=== PATIENT | male | born 1990 | race Caucasian/White ===

== ENCOUNTER → 2018-02-02 14:27 | Outpatient (CLI) | payer OTHER, MEDICAID, SELFPAY ==
[2018-02-02 15:01] LABS: Basophils Percent Auto 0.8 % (0-2); Eosinophils Percent Auto 9.4 % (2-4); Hematocrit 36.6 % (41-53); Hemoglobin 11.9 g/dL (13.5-17.5); Lymphocytes Percent Auto 8.4 % (25-40); Mean Corpuscular HGB Conc 32.5 % (30-36); Mean Corpuscular Hemoglobin 28.6 PG (26-34); Monocytes Percent Auto 15.1 % (3-14); Neutrophils Absolute Auto 3500 /uL (3000-5900); Neutrophils Percent Auto 66.3 % (50-75); Platelet Count 408 X10^3/uL (150-400); Red Blood Cell Count 4.15 X10^6/uL (4.5-5.9); Red Cell Distribution Width 22.3 % (11.6-14.8); White Blood Cell Count 5.3 X10^3/uL (4.5-11.0)
[2018-02-02 15:08] LABS: Add Manual Diff / Slide Review SLIDE REVIEW
[2018-02-02 15:41] LABS: Anisocytosis 2+; Poikilocytosis 1+
== END ==
PROVIDERS: Nurse Practitioner Gerontology; Visit Provider Internal Medicine Hematology & Oncology
DX: C81.90 Hodgkin lymphoma, unspecified, unspecified site (principal)
CPT/HCPCS: 36415; 85025

== ENCOUNTER → 2018-02-09 15:00 | Outpatient (CLI) | payer OTHER, MEDICAID, SELFPAY ==
[2018-02-09 15:21] LABS: Add Manual Diff / Slide Review NO; Basophils Percent Auto 0.9 % (0-2); Eosinophils Percent Auto 6.4 % (2-4); Hematocrit 35.8 % (41-53); Lymphocytes Percent Auto 4.9 % (25-40); Mean Corpuscular HGB Conc 33.5 % (30-36); Mean Corpuscular Hemoglobin 29.8 PG (26-34); Mean Corpuscular Volume 88.9 fL (80-100); Neutrophils Absolute Auto 5400 /uL (3000-5900); Neutrophils Percent Auto 72.8 % (50-75); Platelet Count 282 X10^3/uL (150-400); Red Blood Cell Count 4.03 X10^6/uL (4.5-5.9); Red Cell Distribution Width 22.7 % (11.6-14.8); White Blood Cell Count 7.4 X10^3/uL (4.5-11.0)
[2018-02-09 16:36] LABS: Anisocytosis 2+; Poikilocytosis 1+
== END ==
PROVIDERS: Nurse Practitioner Gerontology
DX: C81.90 Hodgkin lymphoma, unspecified, unspecified site (principal)
CPT/HCPCS: 36415; 85025

== ENCOUNTER 2018-10-17 17:18 | Emergency (ER) | payer OTHER, MEDICAID, SELFPAY ==
[2018-10-17 17:22] VITALS: BP 114/75; PULSE 95; RESP 18; TEMP 36.8; O2SAT 98; BMI 22.6
--- NOTE | 2018-10-17 17:53 | ED_ITS ---
HPI - Ear Problem <Sheron So PA-C - Last Filed: 10/17/18 22:18> General Chief complaint: Ear Stated complaint: LEFT EAR INFECTION Time Seen by Provider: 10/17/18 17:20 Source: patient Mode of arrival: ambulatory Limitations: no limitations History of Present Illness HPI Narrative: This 28-year-old male who recently completed a course of radiation for Hodgkin's lymphoma and is status post stem cell transplant, complains of possible left ear infection. He states that several others have been sick at home with more typical cold and upper respiratory symptoms, which he had last week, mainly with sinus congestion and pressure, nasal congestion and sore throat. He states he has had some cough, no shortness of breath. He has not had a fever. He states that in the last 36 hr, his left ear has become very painful and he has difficulty hearing out of that ear. He has not had drainage from that ear. He has not been taking any medication or decongestant aside from occasional Tylenol Related Data Home Medications Medication Instructions Recorded Confirmed [TURMERIC] 500 mg PO QDAY #0 03/17/17 ascorbic acid (vitamin C) 500 mg PO QDAY #0 03/17/17 ibuprofen [Advil] 400 mg PO Q6HP PRN #0 08/18/17 acyclovir [Zovirax] 200 mg PO BID #0 12/20/17 levofloxacin [Levaquin] 500 mg PO QDAY #0 12/20/17 prochlorperazine maleate 5 mg PO PRN #0 12/20/17 [Compazine] sulfamethoxazole-trimethoprim 1 tab PO BID #0 12/20/17 hydromorphone [Dilaudid] 1 - 2 tab PO Q3HP PRN 10/17/18 silver sulfadiazine [SSD] 1 applic TOPICAL BID 10/17/18 10/17/18 Previous Rx's Medication Instructions Recorded lorazepam 0.5 mg PO Q6HP PRN #40 tab 10/06/17 ondansetron 4 mg SUBLINGUAL Q6HP PRN #40 tab 10/06/17 amoxicillin-pot clavulanate 1 tab PO Q12H #14 tab 10/17/18 Allergies Allergy/AdvReac Type Severity Reaction Status Date / Time vancomycin Allergy Rash Verified 10/17/18 17:28 morphine AdvReac Vomiting Verified 10/17/18 17:29 Review of Systems <Sheron So PA-C - Last Filed: 10/17/18 22:18> Review of Systems ROS Unobtainable: All systems reviewed & are unremarkable except as noted in HPI and below PFSH <Sheron So PA-C - Last Filed: 10/17/18 22:18> Comment: Quit tobacco 2016 Exam <MARGA Govea Last Filed: 10/17/18 22:18> Narrative Exam Narrative: GENERAL APPEARANCE: Patient sitting comfortably, in no distress. HEAD: No sinus TTP. EYES: PERRL, EOMI. EARS: Normal auditory canals, right TM is intact, dull, left is retracted, erythematous, with a slight bulge in the inferior anterior quadrant ORAL CAVITY: Normal oropharynx. THROAT: Clear. PND noted NECK/THYROID: Neck supple, full range of motion, no cervical lymphadenopathy. LUNGS: Clear to auscultation bilaterally, no cough on exam. HEART: RRR without murmur, nl S1, S2, no S3 or S4. Initial Vital Signs Initial Vital Signs: Vital Signs Temperature 98.3 F 10/17/18 17:22 Pulse Rate 95 H 10/17/18 17:22 Respiratory Rate 18 10/17/18 17:22 Blood Pressure 114/75 10/17/18 17:22 Pulse Oximetry 98 10/17/18 17:22 <Saul Traore DO - Last Filed: 10/18/18 00:44> Initial Vital Signs Initial Vital Signs: Vital Signs Temperature 98.3 F 10/17/18 17:22 Pulse Rate 95 H 10/17/18 17:22 Respiratory Rate 18 10/17/18 17:22 Blood Pressure 114/75 10/17/18 17:22 Pulse Oximetry 98 10/17/18 17:22 Course <MARGA Govea Last Filed: 10/17/18 22:18> Vital Signs - 8 hr 10/17/18 17:22 Temperature 98.3 F Pulse Rate 95 H Respiratory Rate 18 Blood Pressure 114/75 Pulse Oximetry 98 <Saul Traore DO - Last Filed: 10/18/18 00:44> Vital Signs - 8 hr 10/17/18 17:22 Temperature 98.3 F Pulse Rate 95 H Respiratory Rate 18 Blood Pressure 114/75 Pulse Oximetry 98 Discharge Plan Departure Patient Disposition: Home Clinical Impression: Otitis media Discharge Date/Time: 10/17/18 18:27 Interventions: ED Discharge Assessment Last Done: 10/17/18 18:26 Instructions: Middle Ear Infection Activity Restrictions/Additional Instructions: Please return if you have acutely worsening symptoms, or new symptoms such as high fever not responding to medicine. Please start an [id number] anti- inflammatory pain relievers such as Motrin (ibuprofen) 800 mg every 8 hr, or Aleve, 2 tablets every 12 hr (these are equivalent to prescription doses). You can add Tylenol as needed. Also try pseudoephedrine (the 1 that you get from the pharmacist) to help with your congestion, sinus and ear pressure. Start the antibiotic right away. You should follow-up with your primary respite care provider , walk-in, or here if you are not responding to antibiotics at the end of the week. Prescriptions: New amoxicillin-pot clavulanate 875-125 mg tablet 1 tab PO Q12H Qty: 14 RF: 0 No Action ascorbic acid (vitamin C) 500 MG tablet 500 mg PO QDAY Qty: 0 RF: 0 [TURMERIC] 500 mg PO QDAY Qty: 0 RF: 0 ibuprofen [Advil] 200 MG tablet 400 mg PO Q6HP PRNQty: 0 RF: 0 lorazepam 0.5 MG tablet 0.5 mg PO Q6HP PRNQty: 40 RF: 0 ondansetron 4 MG tablet,disintegrating 4 mg Sublingual Q6HP PRNQty: 40 RF: 2 prochlorperazine maleate [Compazine] 5 MG tablet 5 mg PO PRN Qty: 0 RF: 0 sulfamethoxazole-trimethoprim 800 MG/160 MG tablet 1 tab PO BID Qty: 0 RF: 0 acyclovir [Zovirax] 200 MG capsule 200 mg PO BID Qty: 0 RF: 0 levofloxacin [Levaquin] 500 MG tablet 500 mg PO QDAY Qty: 0 RF: 0 silver sulfadiazine [SSD] 1 % cream 1 applic Topical BID RF: 0 hydromorphone [Dilaudid] 2 MG tablet 1 - 2 tab PO Q3HP PRN (Reason: pain) RF: 0 Referrals: Denzel Sosa MD [Non-Staff] - <DO Fox Hugo Last Filed: 10/18/18 00:44> Cosign ED Attending Alex Attestation: I was available for consultation during this patient's emergency department encounter
== END 2018-10-17 18:27 | disposition home or self-care (01) ==
PROVIDERS: Emergency Provider Internal Medicine
DX: H66.92 Otitis media, unspecified, left ear (principal)
CPT/HCPCS: 99282

== ENCOUNTER → 2019-07-18 13:25 | Outpatient (CLI) | payer OTHER, MEDICAID, SELFPAY ==
[2019-07-18 14:11] LABS: Add Manual Diff / Slide Review NO; Basophils Absolute Auto 0 /uL (0-100); Basophils Percent Auto 0.6 % (0-2); Eosinophils Absolute Auto 100 /uL (0-450); Hematocrit 38.2 % (41-53); Hemoglobin 13.1 g/dL (13.5-17.5); Lymphocytes Absolute Auto 800 /uL (1100-4500); Lymphocytes Percent Auto 17.7 % (25-40); Mean Corpuscular HGB Conc 34.4 % (30-36); Mean Corpuscular Hemoglobin 34.1 PG (26-34); Mean Corpuscular Volume 99.3 fL (80-100); Monocytes Absolute Auto 400 /uL (0-900); Monocytes Percent Auto 10.2 % (3-14); Neutrophils Absolute Auto 3000 /uL (1500-7000); Neutrophils Percent Auto 68.5 % (50-75); Platelet Count 252 X10^3/uL (150-400); Red Blood Cell Count 3.84 X10^6/uL (4.5-5.9); Red Cell Distribution Width 14.1 % (11.6-14.8); White Blood Cell Count 4.3 X10^3/uL (4.5-11.0)
[2019-07-18 14:30] LABS: Alanine Aminotransferase 21 IU/L (21-72); Albumin 4.3 g/dL (3.5-5.0); Albumin Globulin Ratio 1.7 (1.0-2.8); Alkaline Phosphatase 53 U/L (38-126); Aspartate Aminotransferase 28 IU/L (17-59); Bilirubin Total 0.3 mg/dL (0.2-1.3); Blood Urea Nitrogen 14 mg/dL (9-20); Calcium 9.4 mg/dL (8.4-10.2); Carbon Dioxide 29 mmol/L (22-32); Chloride 101 mmol/L (98-107); Estimated Glomerular Filt Rate > 60.0 mL/min (>60); Globulin 2.6 g/dL (1.7-4.1); Glucose 102 mg/dL (70-100); HEMOLYSIS < 15 (0-50); Potassium 4.3 mmol/L (3.4-5.1); Sodium 138 mmol/L (137-145); Total Protein 6.9 g/dL (6.3-8.2)
== END ==
PROVIDERS: Visit Provider Internal Medicine Hematology & Oncology
DX: C81.90 Hodgkin lymphoma, unspecified, unspecified site (principal)
CPT/HCPCS: 36415; 80053; 85025

== ENCOUNTER → 2019-10-13 14:37 | Outpatient (CLI) | payer OTHER, MEDICAID, SELFPAY ==
[2019-10-13 15:34] LABS: Add Manual Diff / Slide Review NO; Basophils Absolute Auto 0 /uL (0-100); Basophils Percent Auto 1.1 % (0-2); Eosinophils Absolute Auto 200 /uL (0-450); Eosinophils Percent Auto 4.4 % (2-4); Hemoglobin 14.4 g/dL (13.5-17.5); Lymphocytes Absolute Auto 900 /uL (1100-4500); Lymphocytes Percent Auto 22.9 % (25-40); Mean Corpuscular HGB Conc 34.3 % (30-36); Mean Corpuscular Hemoglobin 34.7 PG (26-34); Mean Corpuscular Volume 101.3 fL (80-100); Monocytes Absolute Auto 500 /uL (0-900); Monocytes Percent Auto 11.8 % (3-14); Neutrophils Absolute Auto 2300 /uL (1500-7000); Neutrophils Percent Auto 59.8 % (50-75); Platelet Count 243 X10^3/uL (150-400); Red Blood Cell Count 4.14 X10^6/uL (4.5-5.9); Red Cell Distribution Width 14.7 % (11.6-14.8); White Blood Cell Count 3.8 X10^3/uL (4.5-11.0)
[2019-10-13 15:54] LABS: Alanine Aminotransferase 18 IU/L (<50); Albumin 4.5 g/dL (3.5-5.0); Albumin Globulin Ratio 1.8 (1.0-2.8); Alkaline Phosphatase 54 U/L (38-126); Aspartate Aminotransferase 36 IU/L (17-59); BUN Creatinine Ratio 22.9 (6-22); Bilirubin Total 0.5 mg/dL (0.2-1.3); Blood Urea Nitrogen 16 mg/dL (9-20); Calcium 9.2 mg/dL (8.4-10.2); Carbon Dioxide 31 mmol/L (22-32); Chloride 102 mmol/L (98-107); Estimated Glomerular Filt Rate > 60.0 mL/min (>60); Globulin 2.5 g/dL (1.7-4.1); Glucose 95 mg/dL (70-100); HEMOLYSIS < 15 (0-50); Lactate Dehydrogenase 400 U/L (313-618); Potassium 4.2 mmol/L (3.4-5.1); Sodium 139 mmol/L (137-145)
== END ==
PROVIDERS: Visit Provider Internal Medicine Hematology & Oncology
DX: C81.90 Hodgkin lymphoma, unspecified, unspecified site (principal)
CPT/HCPCS: 36415; 80053; 83615; 85025

== ENCOUNTER → 2019-11-08 14:32 | Outpatient (CLI) | payer SELFPAY ==
[2019-11-08 15:55] LABS: Alanine Aminotransferase 18 IU/L (<50); Albumin 4.6 g/dL (3.5-5.0); Albumin Globulin Ratio 1.6 (1.0-2.8); Alkaline Phosphatase 58 U/L (38-126); Aspartate Aminotransferase 33 IU/L (17-59); BUN Creatinine Ratio 16.7 (6-22); Bilirubin Total 0.5 mg/dL (0.2-1.3); Blood Urea Nitrogen 15 mg/dL (9-20); Calcium 9.2 mg/dL (8.4-10.2); Carbon Dioxide 31 mmol/L (22-32); Chloride 98 mmol/L (98-107); Estimated Glomerular Filt Rate > 60.0 mL/min (>60); Globulin 2.9 g/dL (1.7-4.1); Glucose 95 mg/dL (70-100); HEMOLYSIS < 15 (0-50); Lactate Dehydrogenase 413 U/L (313-618); Potassium 4.5 mmol/L (3.4-5.1); Sodium 137 mmol/L (137-145); Total Protein 7.5 g/dL (6.3-8.2)
[2019-11-08 16:08] LABS: Add Manual Diff / Slide Review NO; Basophils Absolute Auto 0 /uL (0-100); Basophils Percent Auto 0.2 % (0-2); Eosinophils Absolute Auto 100 /uL (0-450); Eosinophils Percent Auto 1.2 % (2-4); Hematocrit 42.7 % (41-53); Hemoglobin 14.9 g/dL (13.5-17.5); Lymphocytes Absolute Auto 700 /uL (1100-4500); Lymphocytes Percent Auto 8.4 % (25-40); Mean Corpuscular Hemoglobin 35.8 PG (26-34); Mean Corpuscular Volume 102.3 fL (80-100); Monocytes Absolute Auto 800 /uL (0-900); Monocytes Percent Auto 8.8 % (3-14); Neutrophils Absolute Auto 7200 /uL (1500-7000); Neutrophils Percent Auto 81.4 % (50-75); Platelet Count 236 X10^3/uL (150-400); Red Blood Cell Count 4.17 X10^6/uL (4.5-5.9); Red Cell Distribution Width 14.3 % (11.6-14.8); White Blood Cell Count 8.9 X10^3/uL (4.5-11.0)
== END ==
PROVIDERS: Referring Provider Internal Medicine Hematology & Oncology; Visit Provider Internal Medicine Hematology & Oncology
DX: C81.90 Hodgkin lymphoma, unspecified, unspecified site (principal)
CPT/HCPCS: 36415; 80053; 83615; 85025

== ENCOUNTER 2021-08-19 16:42 | Emergency (ER) | payer SELFPAY ==
[2021-08-19 17:02] VITALS: BP 123/83; PULSE 90; RESP 16; TEMP 37.6; O2SAT 99; BMI 25.0
--- NOTE | 2021-08-19 17:19 | DI.US.S_ITS ---
PROCEDURE: US SCROTUM INDICATIONS: Testicular swelling TECHNIQUE: Real-time scanning was performed of the scrotum and testicles, with image documentation. Color and pulse Doppler interrogation was performed of both testicles. COMPARISON: None. FINDINGS: Right: Testicle is normal in size at 3.5 x 1.6 x 2.3 cm, and homogenous in echotexture. Epididymis is normal in overall size and morphology. No hydrocele or varicoceles. Overlying scrotal skin is normal in thickness. Left: Testicle is normal in size at 3.2 x 1.9 x 2.1 cm, and homogeneous in echotexture and other than small 1 mm echogenic focus. Epididymis is normal in overall size and morphology. No hydrocele or varicoceles. Overlying scrotal skin is normal in thickness. Doppler: Color and pulse Doppler demonstrate normal and symmetric arterial flow in both testicles. Slightly increased vascularity involving the left epididymis IMPRESSION: Possible mild left epididymitis. Left epididymis is slightly enlarged and hypervascular which may reflect a mild epididymitis. Approved by: Mahesh Bateman M.D. on 08/19/2021 at 18:48
--- NOTE | 2021-08-19 18:16 | ED.MALEGU ---
HPI - Male Genitourinary General Chief complaint: Urogenital-Male Stated complaint: left testicular enlargement, pain in lower abd Time Seen by Provider: 08/19/21 17:18 Source: patient Mode of arrival: Ambulatory Limitations: no limitations History of Present Illness HPI Narrative: This is a 31-year-old male comes emergency department with concern for left testicular enlargement discomfort. He noticed symptoms over last 24 hours. He states he has had some mild to moderate swelling. Just on the left side. To have some pain in the testicle that has radiated a little bit up to his abdomen. Denies any pain or swelling of the right. No color changes. No dysuria, urgency frequency with his urine. No discharge. Patient denies any other back or flank pain. No temperatures greater than 99.7. No nausea or vomiting. No issues with bowel movements. Patient has not had similar symptoms in the past. He does have a history significant for prior non-Hodgkin's lymphoma and required chemotherapy, radiation to his right upper chest as well as immune modulators an experimental treatment. States he has been cleared from his cancer treatment for the past year and was discharged. His treatment was about 3 and half years ago. He denies any other daily medical issues. He takes a daily vitamin. He had multiple biopsies in his right chest and left axilla. He had 2 small surgeries on the inner right butt cheek/groin area for an infection many years ago. He states he is allergic to vancomycin and morphine. Patient defers any pain medications. Related Data Home Medications Medication Instructions Recorded Confirmed [TURMERIC] 500 mg PO QDAY #0 03/17/17 10/26/18 ascorbic acid (vitamin C) 500 mg 500 mg PO QDAY #0 03/17/17 10/26/18 tablet ibuprofen 200 mg tablet (Advil) 400 mg PO Q6HP PRN #0 08/18/17 10/26/18 acyclovir 200 mg capsule (Zovirax) 200 mg PO BID #0 12/20/17 10/26/18 levofloxacin 500 mg tablet 500 mg PO QDAY #0 12/20/17 10/26/18 (Levaquin) prochlorperazine maleate 5 mg 5 mg PO PRN #0 12/20/17 10/26/18 tablet (Compazine) sulfamethoxazole 800 1 tab PO BID #0 12/20/17 10/26/18 mg-trimethoprim 160 mg tablet hydromorphone 2 mg tablet 1 - 2 tab PO Q3HP PRN 10/17/18 10/26/18 (Dilaudid) silver sulfadiazine 1 % topical 1 applic TOPICAL BID 10/17/18 10/26/18 cream Previous Rx's Medication Instructions Recorded lorazepam 0.5 mg tablet 0.5 mg PO Q6HP PRN #40 tab 10/06/17 ondansetron 4 mg disintegrating 4 mg SUBLINGUAL Q6HP PRN #40 tab 10/06/17 tablet mupirocin 2 % topical ointment 1 applic TOP BID #30 gram 10/26/18 doxycycline hyclate 100 mg tablet 100 mg PO BID 14 Days #28 tab 08/19/21 Allergies Allergy/AdvReac Type Severity Reaction Status Date / Time vancomycin Allergy Rash Verified 10/26/18 13:09 morphine AdvReac Vomiting Verified 10/26/18 13:09 Review of Systems Review of Systems ROS Unobtainable: All systems reviewed & are unremarkable except as noted in HPI and below Patient History Medical History History of nephrolithiasis History of shingles Hodgkin's lymphoma Perirectal abscess Surgical History History of stem cell transplant Family History (Updated 10/17/18 @ 18:25 by Sheron So PA-C) Other Family history non-contributory Social History Smoking Status: Former smoker Smoking Status: Former smoker alcohol intake frequency: a few times a week Substance Use Type: does not use Exam Narrative Exam Narrative: GENERAL: Alert and oriented x three, male in mild distress. HEENT: Head normocephalic, atraumatic, EOMI, pupils reactive, face symmetric, moist mucous membranes NECK: Supple, full range of motion CARDIOVASCULAR: Regular rate and rhythm without murmurs, rubs or gallops. RESPIRATORY: Breath sounds equal bilaterally, no wheezes rales or rhonchi. ABDOMEN: Soft, nontender. Normoactive bowel sounds all 4 quadrants. No guarding or rebound, rigidity, no mass : No CVA tenderness. Chaperoned by nurse CAILIN Padron. Male: normal external examination except for slight swelling of the left testicle which also sits slightly lower than the right. No penile discharge or lesions, right testicle nontender to palpation, left testicle very mildly tender to palptation, cremasteric reflex intact, no inguinal hernias noted. No warmth, erythema or skin changes or edema noted. EXTREMITIES: Normal range of motion, no clubbing or edema. Neurovascularly intact NEUROLOGICAL: Cranial nerves II through XII grossly intact. Moving all extremities SKIN: Warm, dry, no petechiae, no rashes or lesions. Initial Vital Signs Initial Vital Signs: Vital Signs Temperature 99.7 F H 08/19/21 17:02 Pulse Rate 90 08/19/21 17:02 Respiratory Rate 16 08/19/21 17:02 Blood Pressure 123/83 08/19/21 17:02 Pulse Oximetry 99 08/19/21 17:02 Course Orders Ordered: Discontinued Medications Ceftriaxone Sodium (Ceftriaxone 1,000 Mg Vial) 250 mg IM NOW ONE Stop: 08/19/21 19:54 Last Admin: 08/19/21 20:19 Dose: 250 mg Documented by: GUILLERMINA Doxycycline Hyclate (Doxycycline Hyclate 100 Mg Tablet) 100 mg PO NOW ONE Stop: 08/19/21 19:54 Last Admin: 08/19/21 20:21 Dose: 100 mg Documented by: GUILLERMINA Vital Signs Vital signs: Vital Signs - 8 hr 08/19/21 17:02 Temperature 99.7 F H Pulse Rate 90 Respiratory Rate 16 Blood Pressure 123/83 Pulse Oximetry 99 MDM - Male Genitourinary Lab Data Labs: Urine Dip Bedside Urine Glucose Negative Bedside Urine Bilirubin - Negative Bedside Urine Ketone - Negative Urine Specific [place] 1.010 Bedside Urine Occult Blood - Negative Bedside Urine pH 6.0 Bedside Urine Protein - Negative Bedside Urine Urobilinogen - Negative Bedside Urine Nitrite - Negative Bedside Urine Leukocytes - Negative Esterase Imaging Data scrotum US: Radiologist's Impression: Launch?[address] [address] Ultrasound Report Signed Patient: Michael Kay MR#: [id number] : 1990 Acct:[id number] Age/Sex: 31 / M Date of Service: 08/19/21 Loc: ED Accession Number: [id number] ?? Procedure: US scrotum Ordering Provider: Saul Traore D.O. PROCEDURE:? US SCROTUM ? INDICATIONS:? Testicular swelling ? TECHNIQUE:? Real-time scanning was performed of the scrotum and testicles, with image documentation.? Color and pulse Doppler interrogation was performed of both testicles.? ? COMPARISON:? None. ? FINDINGS:? ? Right:? Testicle is normal in size at 3.5 x 1.6 x 2.3 cm, and homogenous in echotexture.? Epididymis is normal in overall size and morphology.? No hydrocele or varicoceles.? Overlying scrotal skin is normal in thickness.? ? Left:? Testicle is normal in size at 3.2 x 1.9 x 2.1 cm, and homogeneous in echotexture and other than small 1 mm echogenic focus.? Epididymis is normal in overall size and morphology.? No hydrocele or varicoceles.? Overlying scrotal skin is normal in thickness. ? ? Doppler:? Color and pulse Doppler demonstrate normal and symmetric arterial flow in both testicles.? Slightly increased vascularity involving the left epididymis ? IMPRESSION:? ? Possible mild left epididymitis.? Left epididymis is slightly enlarged and hypervascular which may reflect a mild epididymitis. ? ? ? Approved by: Mahesh Bateman M.D. on 08/19/2021 at 18:48? [facility] Narrative Medical decision making narrative: This is a 31-year-old male with left testicular discomfort. Urine is negative for obvious infection. Ultrasound shows appearance consistent with epididymitis. Patient covered with Rocephin and doxycycline. Prescription given return precautions discussed. Discharge Plan Departure Patient Disposition: Home Clinical Impression: Pain in left testicle, Epididymitis, left Instructions: Epididymitis Activity Restrictions/Additional Instructions: Your imaging today shows epididymitis or an infection or inflammation of the epididymal portion of your testicle. This is typically treated with antibiotics. [facility]cription was [facility]. You may take ibuprofen up to 800 mg every 8 hours and/or Tylenol up to a 1000 mg every 8 hours as needed for pain. Please return for worsening pain, rapidly worsening swelling, redness, fevers, persistent vomiting, new or worsening abdominal back or flank pain or other new or concerning symptoms. Prescriptions: New doxycycline hyclate 100 mg tablet 100 mg PO BID 14 Days Qty: 28 0RF No Action mupirocin 2 % ointment 1 applic TOP BID Qty: 30 0RF ascorbic acid (vitamin C) 500 MG tablet 500 mg PO QDAY Qty: 0 0RF [TURMERIC] 500 mg PO QDAY Qty: 0 0RF ibuprofen [Advil] 200 MG tablet 400 mg PO Q6HP PRNQty: 0 0RF lorazepam 0.5 MG tablet 0.5 mg PO Q6HP PRNQty: 40 0RF ondansetron 4 MG tablet,disintegrating 4 mg Sublingual Q6HP PRNQty: 40 2RF prochlorperazine maleate [Compazine] 5 MG tablet 5 mg PO PRN Qty: 0 0RF sulfamethoxazole-trimethoprim 800 MG/160 MG tablet 1 tab PO BID Qty: 0 0RF acyclovir [Zovirax] 200 MG capsule 200 mg PO BID Qty: 0 0RF levofloxacin [Levaquin] 500 MG tablet 500 mg PO QDAY Qty: 0 0RF silver sulfadiazine [SSD] 1 % cream 1 applic Topical BID 0RF Label Comments: apply to affected area twice a day hydromorphone [Dilaudid] 2 MG tablet 1 - 2 tab PO Q3HP PRN (Reason: pain) 0RF
[2021-08-19] MEDS: LIDOCAINE 1% (PF) 2 ML (20:19)
[2021-08-19] MEDS: cefTRIAXone 1,000 MG VIAL 250 MG IM (20:19)
[2021-08-19] MEDS: DOXYCYCLINE HYCLATE 100 MG TABLET PO (20:21)
[2021-08-19 20:28] VITALS: BP 120/85; PULSE 88; RESP 16; O2SAT 99
== END 2021-08-19 20:29 | disposition home or self-care (01) ==
PROVIDERS: Emergency Provider Emergency Medicine
DX: N45.1 Epididymitis (principal); R10.30 Lower abdominal pain, unspecified
CPT/HCPCS: 76870; 81003; 96372; 99283; J0696

== ENCOUNTER 2021-09-04 16:10 | Emergency (ER) | payer SELFPAY ==
[2021-09-04 16:12] VITALS: BP 131/78; PULSE 109; RESP 16; TEMP 37; O2SAT 98; BMI 24.3
--- NOTE | 2021-09-04 19:35 | PC.NURSE ---
Pt reports was seen recently for similar symptoms. was started on antibiotics. Reports pain never decrease, but swelling in left testicle decreased but states starting to return. pain in now radiating up left groin and lower back is now painful.
--- NOTE | 2021-09-04 19:55 | ED.MALEGU ---
HPI - Male Genitourinary General Chief complaint: Urogenital-Male Stated complaint: testicular pain & swelling Time Seen by Provider: 09/04/21 19:55 Source: patient Mode of arrival: Ambulatory Limitations: no limitations History of Present Illness HPI Narrative: 31-year-old male former smoker with history of lymphoma (last treated about 1 year ago) presents for the 2nd time with a chief complaint of left testicular pain and swelling. He was most recently here about 2 weeks ago and had negative urine and ultrasound suggesting the possibility of early epididymitis. Patient was given antibiotics and states that his symptoms had largely resolved but never completely. Additionally, he endorses some generalize left-sided abdominal pain and cramping with radiation to his back. He has had kidney stones and states this feels different. He denies any fever or chills. He denies any obvious provocation or palliation. He has no nausea, vomiting, diarrhea or change in appetite. He denies any weight loss. Related Data Home Medications Medication Instructions Recorded Confirmed [TURMERIC] 500 mg PO QDAY #0 03/17/17 10/26/18 ascorbic acid (vitamin C) 500 mg 500 mg PO QDAY #0 03/17/17 10/26/18 tablet ibuprofen 200 mg tablet (Advil) 400 mg PO Q6HP PRN #0 08/18/17 10/26/18 acyclovir 200 mg capsule (Zovirax) 200 mg PO BID #0 12/20/17 10/26/18 levofloxacin 500 mg tablet 500 mg PO QDAY #0 12/20/17 10/26/18 (Levaquin) prochlorperazine maleate 5 mg 5 mg PO PRN #0 12/20/17 10/26/18 tablet (Compazine) sulfamethoxazole 800 1 tab PO BID #0 12/20/17 10/26/18 mg-trimethoprim 160 mg tablet hydromorphone 2 mg tablet 1 - 2 tab PO Q3HP PRN 10/17/18 10/26/18 (Dilaudid) silver sulfadiazine 1 % topical 1 applic TOPICAL BID 10/17/18 10/26/18 cream Previous Rx's Medication Instructions Recorded lorazepam 0.5 mg tablet 0.5 mg PO Q6HP PRN #40 tab 10/06/17 ondansetron 4 mg disintegrating 4 mg SUBLINGUAL Q6HP PRN #40 tab 10/06/17 tablet mupirocin 2 % topical ointment 1 applic TOP BID #30 gram 10/26/18 hydrocodone 5 mg-acetaminophen 325 1 tab PO Q4-6H PRN #10 tab 09/04/21 mg tablet ondansetron 4 mg disintegrating 4 mg PO TID-QID PRN #10 tab 09/04/21 tablet Allergies Allergy/AdvReac Type Severity Reaction Status Date / Time vancomycin Allergy Rash Verified 10/26/18 13:09 morphine AdvReac Vomiting Verified 10/26/18 13:09 Review of Systems Review of Systems Narrative: GENERAL: Denies chills, fatigue, malaise, fever, sweats. HEENT: Denies sinus pain, ear pain, sore throat, difficulty swallowing, dizziness. RESPIRATORY: Denies dyspnea, cough, wheezing, hemoptysis, sputum. CARDIOVASCULAR: Denies chest pain, palpitations, orthopnea, edema, GASTROINTESTINAL: See HPI : See HPI MUSCULOSKELETAL: denies weakness, joint pain, or bony pain SKIN: Denies rash, skin lesions, or other NEUROLOGIC: Denies weakness, headache, numbness, change in speech, confusion, seizures, incoordination. PSYCHIATRIC: No concerning psychosocial issues. 12 point review of systems is negative except for those stated above Patient History Medical History History of nephrolithiasis History of shingles Hodgkin's lymphoma Perirectal abscess Surgical History History of stem cell transplant Family History Other Family history non-contributory Social History Smoking Status: Former smoker Smoking Status: Former smoker alcohol intake frequency: 3 or more drinks per day Substance Use Type: marijuana Exam Narrative Exam Narrative: GENERAL: [31 year old patient appears stated age. Well-developed patient, in mild distress. HEAD: Atraumatic. Normocephalic. EYES: Pupils equal round and reactive. Extraocular motions intact. No scleral icterus. No injection or drainage. ENT: Nose without bleeding, purulent drainage. Throat without erythema, tonsillar hypertrophy or exudate. Airway patent. NECK: Trachea midline. Non tender CARDIOVASCULAR: Regular rate and rhythm without murmurs, gallops, or rubs. RESPIRATORY: Clear to auscultation. Breath sounds equal bilaterally. No wheezes, rales, or rhonchi. GASTROINTESTINAL: Abdomen soft, non-tender, nondistended. : Examined while standing, no obvious testicular swelling or discoloration, no classic findings consistent with hernia EXTREMITIES: No edema or joint tenderness. BACK: Nontender without deformity or crepitance. No flank tenderness. NEURO: AOx3. SKIN: No rash or erythema of visible areas Initial Vital Signs Initial Vital Signs: Vital Signs Temperature 98.6 F 09/04/21 16:12 Pulse Rate 109 H 09/04/21 16:12 Respiratory Rate 16 09/04/21 16:12 Blood Pressure 131/78 09/04/21 16:12 Pulse Oximetry 98 09/04/21 16:12 Course Orders Ordered: ED Orders 09/04/21 21:38 CT abdomen pelvis w con Stat 09/04/21 22:01 CBC Auto Diff [Complete Blood Count AUTO DIFF] Stat CMP [Comprehensive Metabolic Panel] Stat Discontinued Medications Hydrocodone Bitart/Acetaminophen (Hydrocodone/Acet 5/325 Prepack) 1 bottle MISC SEEINSTR ONE Stop: 09/04/21 22:51 Last Admin: 09/04/21 23:08 Dose: 1 bottle Documented by: BESS Ondansetron HCl (Ondansetron 4 Mg Odt Prepack) 1 bottle MISC SEEINSTR ONE Stop: 09/04/21 22:51 Last Admin: 09/04/21 23:08 Dose: 1 bottle Documented by: BESS Consultations Consultation #1: Discussed CT findings with on-call Oncology for [facility]. He agrees that there is no indication for any specific treatment currently, or need for transfer or emergent procedure, however close follow-up is strongly encouraged. He is relating information to the patient's primary oncologist (Dr. Raymond Sosa) and states he office will contact the patient Vital Signs Vital signs: Vital Signs - 8 hr 09/04/21 22:33 Pulse Rate 90 Blood Pressure 121/78 Pulse Oximetry 99 MDM - Male Genitourinary Lab Data Result diagrams: 09/04/21 22:01 09/04/21 22:01 Labs: Lab Results 09/04/21 09/04/21 Range/Units 22:01 22:01 WBC 10.3 (4.5-11.0) X10^3/uL RBC 4.05 L (4.5-5.9) X10^6/uL Hgb 12.7 L (13.5-17.5) g/dL Hct 36.7 L (41-53) % MCV 90.8 (80-100) fL MCH 31.3 (26-34) PG MCHC 34.5 (30-36) % RDW 13.5 (11.6-14.8) % Plt Count 363 (150-400) X10^3/uL Neut % (Auto) 77.5 H (50-75) % Lymph % (Auto) 10.9 L (25-40) % Power % (Auto) 9.5 (3-14) % Eos % (Auto) 1.6 L (2-4) % Baso % (Auto) 0.5 (0-2) % Neut # (Auto) 8000 H (5995-4265) /uL Lymph # (Auto) 1100 (9595-0739) /uL Power # (Auto) 1000 H (0-900) /uL Eos # (Auto) 200 (0-450) /uL Baso # (Auto) 100 (0-100) /uL Sodium 139 (137-145) mmol/L Potassium 4.1 (3.4-5.1) mmol/L Chloride 100 (98-107) mmol/L Carbon Dioxide 32 (22-32) mmol/L BUN 12 (9-20) mg/dL Creatinine 0.80 (0.66-1.25) mg/dL Estimated GFR > 60.0 (>60) mL/min BUN/Creatinine Ratio 15.0 (6-22) Glucose 103 H (70-100) mg/dL Calcium 9.7 (8.4-10.2) mg/dL Total Bilirubin 0.5 (0.2-1.3) mg/dL AST 30 (17-59) IU/L ALT 22 (<50) IU/L Alkaline Phosphatase 101 (38-126) U/L Total Protein 8.4 H (6.3-8.2) g/dL Albumin 4.4 (3.5-5.0) g/dL Globulin 4.0 (1.7-4.1) g/dL Albumin/Globulin Ratio 1.1 (1.0-2.8) Urine Dip Bedside Urine Glucose Negative Bedside Urine Bilirubin - Negative Bedside Urine Ketone - Negative Urine Specific [place] 1.010 Bedside Urine Occult Blood - Negative Bedside Urine pH 6.0 Bedside Urine Protein - Negative Bedside Urine Urobilinogen +/- 1mg Bedside Urine Nitrite - Negative Bedside Urine Leukocytes - Negative Esterase Imaging Data Abdominal x-ray: Radiologist's Impression: [address] [address] XRay Report Signed Patient: Michael Kay MR#: [id number] : 1990 Acct:[id number] Age/Sex: 31 / M Date of Service: 09/04/21 Loc: ED Accession Number: [id number] ?? Procedure: XR acute abdomen series Ordering Provider: Jeanmarie Calderon D.O. PROCEDURE:? XR ACUTE ABDOMEN SERIES ? INDICATIONS:? lower abdominal pain, radiation to back ? TECHNIQUE:? One view chest and two views of the abdomen were acquired.? ? COMPARISON:? None. ? FINDINGS:? ? Surgical changes and devices:? None.? ? Chest:? Lungs are clear.? Heart size is normal.? No pleural effusions.? No pneumoperitoneum.? ? Abdomen:? Bowel gas pattern is normal.? No suspicious calcifications.? Visualized solid organ contours appear normal.? ? Bones:? No suspicious bony lesions.? ? IMPRESSION:? 1. Nonspecific, nonobstructive bowel gas pattern. 2. No acute chest process.? ? ? Dictated by: Alix Ricks M.D. on 09/04/2021 at 21:18 ? ? Approved by: Alix Ricks M.D. on 09/04/2021 at 21:19 ? CT scan - abdomen/pelvis: Radiologist's Impression: Michael Kay??31??M??1990 ? Allergy/Adv: vancomycin, morphine Close Abdomen/Pelvis CT (Signed) Gosia Mclaughlin - 09/04/21 Chest/Abdomen X-ray (Signed) Alix Ricks - 09/04/21 Scrotum Ultrasound (Signed) Alix Ricks - 09/04/21 Scrotum Ultrasound (Signed) Mahesh Bateman - 08/19/21 Radiology - Historical 12/20/17 Radiology - Historical 12/20/17 Radiology - Historical 12/20/17 Launch?[address] [address] [address] Scan Report Signed Patient: Michael Kay MR#: [id number] : 1990 Acct:[id number] Age/Sex: 31 / M Date of Service: 09/04/21 Loc: ED Accession Number: [id number] ?? Procedure: CT abdomen pelvis w con Ordering Provider: Jeanmarie Calderon D.O. PROCEDURE:? CT ABDOMEN PELVIS W CON ? INDICATIONS:? severe lower abdominal pain, radiation to back, testicle pain ? TECHNIQUE:? After the administration of intravenous contrast, axial sections acquired from the lung bases to the pubic symphysis.? Coronal and sagittal reformats were performed.? For radiation dose reduction, the following was used:? automated exposure control, adjustment of mA and/or kV according to patient size.? ? COMPARISON:? [facility], CT, CT [place], 09/12/2018, 13:33. ? FINDINGS:? Image quality:? Excellent.? ? Lung bases:? Unremarkable. Heart:? No significant findings. ? ABDOMEN: Liver:? Unremarkable.? ? Gallbladder:? Unremarkable.? ? Biliary ducts:? Unremarkable.? ? Pancreas:? Unremarkable.? ? Spleen:? Unremarkable.? ? Adrenal Glands:? Unremarkable.? ? Kidneys and Ureters:? Unremarkable.? ? ? Stomach and Bowel:? Stomach, small bowel loops, and colon are unremarkable.? Peritoneum:? No abnormal intraperitoneal fluid.? No free air.? ? Ventral Wall: ? No hernias.? Abdominal Nodes:? There is new confluency retroperitoneal adenopathy, with a large consequent retroperitoneal mass encasing the infrarenal abdominal aorta and partially encasing the left aspect of the IVC, measuring roughly 43 mm anteroposterior by a 4 mm transverse.? Multiple smaller gastrohepatic ligament lymph nodes and left para-aortic lymph nodes are present. Vessels:? Aorta and inferior vena cava are normal in size.? ? PELVIS: Pelvic Organs:? Unremarkable.? ? Bladder:? Unremarkable.? ? Pelvic Nodes: No enlarged lymph nodes.? Miscellaneous: No hernias are seen. ? ? ? Bones:? Unremarkable.? IMPRESSION:? 1. New bulky retroperitoneal adenopathy, consistent with lymphoma recurrence. 2. No acute process. ? ? ? Dictated by: Gosia Mclaughlin M.D. on 09/04/2021 at 22:28 ? ? Approved by: Gosia Mclaughlin M.D. on 09/04/2021 at 22:31 ? MDM Narrative Medical decision making narrative: Patient with ongoing left testicular pain with a very reassuring physical exam. Labs are unremarkable but imaging would suggest a recurrence of his lymphoma. It is likely that the pain in his scrotum is referred. The extent of the bulky retroperitoneal lymphadenopathy is discussed with Oncology, though it does seem to wrap around his IVC there is no chest pain, shortness of breath, neuro symptoms, syncope or other elements of history or physical exam to suggest that emergent transfer is needed. Extensive return precautions discussed and questions have been answered to his apparent satisfaction Discharge Plan Departure Patient Disposition: Home Clinical Impression: Lymphoma Instructions: DI for Hodgkin Lymphoma Activity Restrictions/Additional Instructions: *You have been diagnosed with [lower abdominal pain, likely due to recurrence of lymphoma as was suggested by the CT scan obtained tonight. *What to do: *Please continue to take your regular medications as directed. [x ] New medication prescriptions sent to your pharmacy: [ ] [ ] New medication written as a paper prescription [ ] No new medications given *Please follow up with Dr. Sosa at the [facility] as soon as possible, call for an appointment tomorrow morning and let them know you were seen in the Emergency Department and that we ask that you be seen in follow up. We will electronically transmit a record of today's note if your PCP is in our system *If you do not have a primary care provider please contact the [facility] Resource line at [phone]. They will ask some questions about your medical history and help get you set up with a doctor in the community. *Return to Emergency Department if you should have any new, worsening or concerning symptoms, such as [fever greater than 101 F, shaking chills, worsening pain, persistent vomiting or other bothersome symptoms] Prescriptions: New hydrocodone-acetaminophen 5-325 mg tablet 1 tab PO Q4-6H PRN (Reason: pain) Qty: 10 0RF ondansetron 4 mg tablet,disintegrating 4 mg PO TID-QID PRN (Reason: nausea and vomiting) Qty: 10 0RF No Action mupirocin 2 % ointment 1 applic TOP BID Qty: 30 0RF ascorbic acid (vitamin C) 500 MG tablet 500 mg PO QDAY Qty: 0 0RF [TURMERIC] 500 mg PO QDAY Qty: 0 0RF ibuprofen [Advil] 200 MG tablet 400 mg PO Q6HP PRNQty: 0 0RF lorazepam 0.5 MG tablet 0.5 mg PO Q6HP PRNQty: 40 0RF ondansetron 4 MG tablet,disintegrating 4 mg Sublingual Q6HP PRNQty: 40 2RF prochlorperazine maleate [Compazine] 5 MG tablet 5 mg PO PRN Qty: 0 0RF sulfamethoxazole-trimethoprim 800 MG/160 MG tablet 1 tab PO BID Qty: 0 0RF acyclovir [Zovirax] 200 MG capsule 200 mg PO BID Qty: 0 0RF levofloxacin [Levaquin] 500 MG tablet 500 mg PO QDAY Qty: 0 0RF silver sulfadiazine [SSD] 1 % cream 1 applic Topical BID 0RF Label Comments: apply to affected area twice a day hydromorphone [Dilaudid] 2 MG tablet 1 - 2 tab PO Q3HP PRN (Reason: pain) 0RF
--- NOTE | 2021-09-04 20:19 | DI.US.S_ITS ---
PROCEDURE: US SCROTUM INDICATIONS: LEFT TESTICULAR PAIN TECHNIQUE: Real-time scanning was performed of the scrotum and testicles, with image documentation. Color and pulse Doppler interrogation was performed of both testicles. COMPARISON: [facility], , US SCROTUM, 08/19/2021, 17:43. FINDINGS: Right: Testicle is normal in size at 3.6 x 1.8 x 3.0 cm, and homogenous in echotexture. Epididymis is normal in overall size and morphology. No hydrocele or varicoceles. Overlying scrotal skin is normal in thickness. Left: Testicle is normal in size at 3.4 x 2.2 x 2.4 cm, and homogeneous in echotexture. Epididymis is normal in overall size and morphology. Small left hydrocele. No varicoceles. Overlying scrotal skin is normal in thickness. Doppler: Color and pulse Doppler demonstrate normal and symmetric arterial flow in both testicles. IMPRESSION: 1. Normal left testicle in morphology and vascularity. 2. Small left hydrocele, similar compared to recent prior. 3. No evidence of epididymitis. Dictated by: Alix Ricks M.D. on 09/04/2021 at 21:50 Approved by: Alix Ricks M.D. on 09/04/2021 at 21:53
--- NOTE | 2021-09-04 20:32 | DI.RAD.S_ITS ---
PROCEDURE: XR ACUTE ABDOMEN SERIES INDICATIONS: lower abdominal pain, radiation to back TECHNIQUE: One view chest and two views of the abdomen were acquired. COMPARISON: None. FINDINGS: Surgical changes and devices: None. Chest: Lungs are clear. Heart size is normal. No pleural effusions. No pneumoperitoneum. Abdomen: Bowel gas pattern is normal. No suspicious calcifications. Visualized solid organ contours appear normal. Bones: No suspicious bony lesions. IMPRESSION: 1. Nonspecific, nonobstructive bowel gas pattern. 2. No acute chest process. Dictated by: Alix Ricks M.D. on 09/04/2021 at 21:18 Approved by: Alix Ricks M.D. on 09/04/2021 at 21:19
--- NOTE | 2021-09-04 21:38 | DI.CT.S_ITS ---
PROCEDURE: CT ABDOMEN PELVIS W CON INDICATIONS: severe lower abdominal pain, radiation to back, testicle pain TECHNIQUE: After the administration of intravenous contrast, axial sections acquired from the lung bases to the pubic symphysis. Coronal and sagittal reformats were performed. For radiation dose reduction, the following was used: automated exposure control, adjustment of mA and/or kV according to patient size. COMPARISON: M[facility]ed [facility], CT, CT [place], 09/12/2018, 13:33. FINDINGS: Image quality: Excellent. Lung bases: Unremarkable. Heart: No significant findings. ABDOMEN: Liver: Unremarkable. Gallbladder: Unremarkable. Biliary ducts: Unremarkable. Pancreas: Unremarkable. Spleen: Unremarkable. Adrenal Glands: Unremarkable. Kidneys and Ureters: Unremarkable. Stomach and Bowel: Stomach, small bowel loops, and colon are unremarkable. Peritoneum: No abnormal intraperitoneal fluid. No free air. Ventral Wall: No hernias. Abdominal Nodes: There is new confluency retroperitoneal adenopathy, with a large consequent retroperitoneal mass encasing the infrarenal abdominal aorta and partially encasing the left aspect of the IVC, measuring roughly 43 mm anteroposterior by a 4 mm transverse. Multiple smaller gastrohepatic ligament lymph nodes and left para-aortic lymph nodes are present. Vessels: Aorta and inferior vena cava are normal in size. PELVIS: Pelvic Organs: Unremarkable. Bladder: Unremarkable. Pelvic Nodes: No enlarged lymph nodes. Miscellaneous: No hernias are seen. Bones: Unremarkable. IMPRESSION: 1. New bulky retroperitoneal adenopathy, consistent with lymphoma recurrence. 2. No acute process. Dictated by: Gosia Mclaughlin M.D. on 09/04/2021 at 22:28 Approved by: Gosia Mclaughlin M.D. on 09/04/2021 at 22:31
[2021-09-04 22:05] LABS: Add Manual Diff / Slide Review NO; Basophils Absolute Auto 100 /uL (0-100); Basophils Percent Auto 0.5 % (0-2); Eosinophils Absolute Auto 200 /uL (0-450); Eosinophils Percent Auto 1.6 % (2-4); Hematocrit 36.7 % (41-53); Hemoglobin 12.7 g/dL (13.5-17.5); Lymphocytes Absolute Auto 1100 /uL (1100-4500); Lymphocytes Percent Auto 10.9 % (25-40); Mean Corpuscular HGB Conc 34.5 % (30-36); Mean Corpuscular Hemoglobin 31.3 PG (26-34); Mean Corpuscular Volume 90.8 fL (80-100); Monocytes Absolute Auto 1000 /uL (0-900); Monocytes Percent Auto 9.5 % (3-14); Neutrophils Absolute Auto 8000 /uL (1500-7000); Neutrophils Percent Auto 77.5 % (50-75); Platelet Count 363 X10^3/uL (150-400); Red Blood Cell Count 4.05 X10^6/uL (4.5-5.9); Red Cell Distribution Width 13.5 % (11.6-14.8); White Blood Cell Count 10.3 X10^3/uL (4.5-11.0)
[2021-09-04 22:14] LABS: Alanine Aminotransferase 22 IU/L (<50); Albumin 4.4 g/dL (3.5-5.0); Albumin Globulin Ratio 1.1 (1.0-2.8); Alkaline Phosphatase 101 U/L (38-126); Aspartate Aminotransferase 30 IU/L (17-59); Bilirubin Total 0.5 mg/dL (0.2-1.3); Blood Urea Nitrogen 12 mg/dL (9-20); Calcium 9.7 mg/dL (8.4-10.2); Carbon Dioxide 32 mmol/L (22-32); Chloride 100 mmol/L (98-107); Estimated Glomerular Filt Rate > 60.0 mL/min (>60); Glucose 103 mg/dL (70-100); HEMOLYSIS < 15 (0-50); Potassium 4.1 mmol/L (3.4-5.1); Sodium 139 mmol/L (137-145); Total Protein 8.4 g/dL (6.3-8.2)
[2021-09-04 22:33] VITALS: BP 121/78; PULSE 90; O2SAT 99
[2021-09-04] MEDS: ONDANSETRON 4 MG ODT PREPACK 1 BOTTLE MISC (23:08)
[2021-09-04] MEDS: HYDROCODONE/ACET 5/325 PREPACK 1 BOTTLE MISC (23:08)
== END 2021-09-04 23:16 | disposition home or self-care (01) ==
PROVIDERS: Emergency Provider Emergency Medicine
DX: C81.90 Hodgkin lymphoma, unspecified, unspecified site (principal); N50.812 Left testicular pain
CPT/HCPCS: 36415; 51798; 74022; 74177; 76870; 80053; 81003; 85025; 99284; Q9967

== ENCOUNTER 2024-09-05 10:31 | Emergency (ER) | payer SELFPAY ==
[2024-09-05] VITALS (10 sets, daily range): BP systolic 110–136; BP diastolic 70–81; PULSE 65–96; RESP 15; TEMP 36.4; O2SAT 99–100; BMI 24.3
[2024-09-05 11:03] LABS: Add Manual Diff / Slide Review NO; Basophils Absolute Auto 0 /uL (0-100); Basophils Percent Auto 0.5 % (0-2); Eosinophils Absolute Auto 200 /uL (0-450); Eosinophils Percent Auto 3.5 % (2-4); Hematocrit 42.2 % (41-53); Hemoglobin 14.3 g/dL (13.5-17.5); Lymphocytes Absolute Auto 1100 /uL (1100-4500); Lymphocytes Percent Auto 17.6 % (25-40); Mean Corpuscular HGB Conc 33.9 % (30-36); Mean Corpuscular Hemoglobin 33.3 PG (26-34); Mean Corpuscular Volume 98.3 fL (80-100); Monocytes Absolute Auto 800 /uL (0-900); Neutrophils Absolute Auto 4100 /uL (1500-7000); Neutrophils Percent Auto 65.4 % (50-75); Platelet Count 251 X10^3/uL (150-400); Red Blood Cell Count 4.29 X10^6/uL (4.5-5.9); Red Cell Distribution Width 12.9 % (11.6-14.8); White Blood Cell Count 6.3 X10^3/uL (4.5-11.0)
[2024-09-05 11:09] LABS: Alanine Aminotransferase 25 IU/L (<50); Albumin 4.6 g/dL (3.5-5.0); Albumin Globulin Ratio 1.5 (1.0-2.8); Alkaline Phosphatase 57 U/L (38-126); Aspartate Aminotransferase 44 IU/L (17-59); BUN Creatinine Ratio 17.6 (6-22); Blood Urea Nitrogen 16 mg/dL (9-20); Calcium 9.4 mg/dL (8.4-10.2); Carbon Dioxide 27 mmol/L (22-32); Chloride 104 mmol/L (98-107); Estimated Glomerular Filt Rate > 60 mL/min (>60); Globulin 3.1 g/dL (1.7-4.1); Glucose 105 mg/dL (70-100); HEMOLYSIS 17 (0-50); Lipase 116 U/L (23-300); Sodium 138 mmol/L (137-145); Total Protein 7.7 g/dL (6.3-8.2)
--- NOTE | 2024-09-05 11:49 | ED_ITS ---
HPI - Abdominal Pain General Chief Complaint: Abdominal Pain Stated Complaint: Acute stomach pain Time Seen by Provider: 09/05/24 10:59 Source: patient, RN notes reviewed and old records reviewed Mode of arrival: Family Vehicle Limitations: no limitations History of Present Illness HPI narrative: 34-year-old male history lymphoma has completed treatment successfully, patient presents with complaint of right sided abdominal discomfort on and off for the past several weeks he notes it is worse any time he eats or drinks anything. Patient states no fevers, had some nausea vomiting last week but states it past very briefly. He has had intermittent normal stools occasional diarrhea or constipation. No black or bloody stools. No dysuria urgency or frequency. States last night pain radiates a little bit more to his back on the right side. States it is improved at this time but not resolved. Patient states no daily prescription medications. Denies any prior surgeries. Describes allergy to vancomycin and morphine. No tobacco does drink several alcoholic drinks daily, uses marijuana no other recreational or IV drugs. Patient presents today had significant episode of pain last night so came for evaluation. Related Data Home Medications Medication Instructions Recorded Confirmed [TURMERIC] 500 mg PO QDAY ##0 03/17/17 10/26/18 ascorbic acid (vitamin C) 500 mg 500 mg PO QDAY ##0 03/17/17 10/26/18 tablet ibuprofen 200 mg tablet (Advil) 400 mg PO Q6HP PRN ##0 08/18/17 10/26/18 acyclovir 200 mg capsule (Zovirax) 200 mg PO BID ##0 12/20/17 10/26/18 levofloxacin 500 mg tablet 500 mg PO QDAY ##0 12/20/17 10/26/18 (Levaquin) prochlorperazine maleate 5 mg 5 mg PO PRN ##0 12/20/17 10/26/18 tablet (Compazine) sulfamethoxazole 800 1 tab PO BID ##0 12/20/17 10/26/18 mg-trimethoprim 160 mg tablet hydromorphone 2 mg tablet 1 - 2 tab PO Q3HP PRN pain 10/17/18 10/26/18 (Dilaudid) silver sulfadiazine 1 % topical 1 applic topical BID 10/17/18 10/26/18 cream Previous Rx's Medication Instructions Recorded lorazepam 0.5 mg tablet 0.5 mg PO Q6HP PRN #40 tabs 10/06/17 ondansetron 4 mg disintegrating 4 mg sublingual Q6HP PRN #40 tabs 10/06/17 tablet mupirocin 2 % topical ointment 1 applic topical BID #30 grams 10/26/18 hydrocodone 5 mg-acetaminophen 325 1 tab PO Q4-6H PRN pain #10 tabs 09/04/21 mg tablet ondansetron 4 mg disintegrating 4 mg PO TID-QID PRN nausea and 09/04/21 tablet vomiting #10 tabs omeprazole 40 mg capsule,delayed 40 mg PO DAILY #60 caps 09/05/24 release Allergies Allergy/AdvReac Type Severity Reaction Status Date / Time vancomycin Allergy Rash Verified 10/26/18 13:09 Iodinated Contrast Media AdvReac Vomiting Verified 09/05/24 12:46 morphine AdvReac Vomiting Verified 10/26/18 13:09 Review of Systems Review of Systems ROS Unobtainable: All systems reviewed & are unremarkable except as noted in HPI and below Patient History Medical History History of shingles Perirectal abscess History of nephrolithiasis Hodgkin's lymphoma Surgical History History of stem cell transplant Family History Other Family history non-contributory Social History Smoking Status: Former smoker Smoking Status: Former smoker alcohol intake frequency: 3 or more drinks per day Substance Use Type: marijuana Exam Narrative Exam Narrative: GENERAL: Alert and oriented x three, male in mild distress HEENT: Head normocephalic, atraumatic, EOMI, pupils reactive, face symmetric, moist mucous membranes NECK: Supple, full range of motion CARDIOVASCULAR: Regular rate and rhythm without murmurs, rubs or gallops. RESPIRATORY: Breath sounds equal bilaterally, no wheezes rales or rhonchi. ABDOMEN: Soft, mild generalized tenderness. Normoactive bowel sounds all 4 quadrants. No guarding or rebound, rigidity, no mass : No CVA tenderness EXTREMITIES: Normal range of motion, no clubbing or edema. Neurovascularly intact NEUROLOGICAL: Cranial nerves II through XII grossly intact. Moving all extremities SKIN: Warm, dry, no petechiae, no rashes or lesions. Initial Vital Signs Initial Vital Signs: Vital Signs Pulse Rate 78 09/05/24 10:36 Blood Pressure 134/80 09/05/24 10:36 Pulse Oximetry 99 09/05/24 10:36 Course Orders Ordered: ED Orders 09/05/24 10:45 Complete Blood Count AUTO DIFF Stat Comprehensive Metabolic Panel Stat Lipase Stat 09/05/24 11:49 US abdomen limited Stat 09/05/24 12:29 CT abdomen pelvis w con Stat Discontinued Medications Ondansetron HCl (Ondansetron 4 Mg/2 Ml Inj) 4 mg IV NOW PRN PRN Reason: Nausea And Vomiting Ondansetron HCl (Ondansetron 4 Mg Odt) 4 mg PO NOW PRN PRN Reason: Nausea And Vomiting Pantoprazole Sodium (Pantoprazole 40 Mg Vial) 40 mg IV NOW ONE Stop: 09/05/24 13:12 Last Admin: 09/05/24 13:25 Dose: 40 mg Documented By: SUSANA Vital Signs Vital signs: Vital Signs - 8 hr 09/05/24 11:36 09/05/24 11:36 09/05/24 12:00 Pulse Rate 82 65 Blood Pressure 119/78 Pulse Oximetry 99 99 09/05/24 12:00 09/05/24 12:30 09/05/24 12:30 Pulse Rate 77 Blood Pressure 130/79 110/70 Pulse Oximetry 100 09/05/24 12:45 09/05/24 12:45 09/05/24 13:00 Pulse Rate 96 H Blood Pressure 136/81 122/76 Pulse Oximetry 99 09/05/24 13:00 09/05/24 13:30 Pulse Rate 82 76 Blood Pressure Pulse Oximetry 100 99 MDM - Abdominal Pain Lab Data 09/05/24 10:45 09/05/24 10:45 Labs: Lab Results 09/05/24 Range/Units 10:45 WBC 6.3 (4.5-11.0) X10^3/uL RBC 4.29 L (4.5-5.9) X10^6/uL Hgb 14.3 (13.5-17.5) g/dL Hct 42.2 (41-53) % MCV 98.3 (80-100) fL MCH 33.3 (26-34) PG MCHC 33.9 (30-36) % RDW 12.9 (11.6-14.8) % Plt Count 251 (150-400) X10^3/uL Neut % (Auto) 65.4 (50-75) % Lymph % (Auto) 17.6 L (25-40) % [place] % (Auto) 13.0 (3-14) % Eos % (Auto) 3.5 (2-4) % Baso % (Auto) 0.5 (0-2) % Neut # (Auto) 4100 (4042-9478) /uL Lymph # (Auto) 1100 (9081-2514) /uL [place] # (Auto) 800 (0-900) /uL Eos # (Auto) 200 (0-450) /uL Baso # (Auto) 0 (0-100) /uL Sodium 138 (137-145) mmol/L Potassium 4.0 (3.4-5.1) mmol/L Chloride 104 (98-107) mmol/L Carbon Dioxide 27 (22-32) mmol/L BUN 16 (9-20) mg/dL Creatinine 0.91 (0.66-1.25) mg/dL Estimated GFR > 60 (>60) mL/min BUN/Creatinine Ratio 17.6 (6-22) Glucose 105 H (70-100) mg/dL Calcium 9.4 (8.4-10.2) mg/dL Total Bilirubin 1.0 (0.2-1.3) mg/dL AST 44 (17-59) IU/L ALT 25 (<50) IU/L Alkaline Phosphatase 57 (38-126) U/L Total Protein 7.7 (6.3-8.2) g/dL Albumin 4.6 (3.5-5.0) g/dL Globulin 3.1 (1.7-4.1) g/dL Albumin/Globulin Ratio 1.5 (1.0-2.8) Lipase 116 (23-300) U/L Point of care testing: Urine Dip Bedside Urine Glucose Negative Bedside Urine Bilirubin - Negative Bedside Urine Ketone +/- 5 Urine Specific Swain 1.010 Bedside Urine Occult Blood - Negative Bedside Urine pH 7.5 Bedside Urine Protein - Negative Bedside Urine Urobilinogen - Negative Bedside Urine Nitrite - Negative Bedside Urine Leukocytes - Negative Esterase Imaging Data CT scan - abdomen/pelvis: Radiologist's Impression: Michael Kay??34??M??1990 ? Allergy/Adv: vancomycin, Iodinated Contrast Media, morphine (More??) Close Abdomen/Pelvis CT (Signed) Annie Barrett - 09/05/24 Abdomen Ultrasound (Signed) AnilJamie - 09/05/24 Abdomen/Pelvis CT (Signed) Gosia Mclaughlin - 09/04/21 Chest/Abdomen X-ray (Signed) Alix Ricks - 09/04/21 Scrotum Ultrasound (Signed) Alix Ricks - 09/04/21 Scrotum Ultrasound (Signed) Mahesh Bateman - 08/19/21 [place] [address] CT Scan Report Signed Patient: Michael Kay MR#: [id number] : 1990 Acct:[id number] Age/Sex: 34 / M Date of Service: 09/05/24 Loc: ED Accession Number: [id number] Procedure: CT abdomen pelvis w con Ordering Provider: Kelin Malik D.O. PROCEDURE: CT ABDOMEN PELVIS W CON INDICATIONS: abd pain w/ food, hx lymphoma, treated. TECHNIQUE: After the administration of intravenous contrast, axial sections acquired from the lung bases to the pubic symphysis. Coronal and sagittal reformats were performed. For radiation dose reduction, the following was used: automated exposure control, adjustment of mA and/or kV according to patient size. COMPARISON: [facility], CT, CT ABDOMEN WITH CONTRAST, 10/26/2022, 16:41. [facility], CT, CT ABDOMEN PELVIS W CON, 09/04/2021, 21:44. FINDINGS: Image quality: Diagnostic. Lower Chest: No significant findings. ABDOMEN: Liver: No solid mass. Steatosis. Gallbladder: No radiopaque gallstones or wall thickening. Biliary ducts: No biliary dilation. Pancreas: No ductal dilation. Spleen: Size is within normal limits. Adrenal Glands: No adrenal nodules. Kidneys and Ureters: No hydronephrosis. No solid mass. No complex renal cystic lesion which requires follow up. Simple cysts. Stomach and Bowel: Normal colonic caliber, without significant wall thickening. Peritoneum: No abnormal intraperitoneal fluid. No free air. Ventral Wall: No significant ventral hernia. Abdominal Nodes: Periaortic and aortocaval soft tissue density is present are measuring 1.4 cm. This is compared to 2.6 cm on prior exam. Vessels: Aorta and inferior vena cava are normal in size. PELVIS: Pelvic Organs: Unremarkable. Bladder: No bladder wall thickening, accounting for underdistention. Pelvic Nodes: No enlarged lymph nodes. Miscellaneous: No inguinal hernias are seen. Bones: No aggressive osseous abnormality. IMPRESSION: No acute intra-abdominal or pelvic process. Decreased adenopathy compared to prior exam. Dictated by: Annie Barrett M.D. on 09/05/2024 at 12:54 Approved by: Annie Barrett M.D. on 09/05/2024 at 13:03 [facility] Narrative Medical decision making narrative: 34-year-old male does have a history of lymphoma complaining of pain any time he eats or drinks, describes it as right-sided he has some mild generalized tenderness on exam but states pain although not resolved as much improved currently. White count of 6.3 hemoglobin of 14.3 platelets of 251, normal electrolytes, BUN creatinine glucose is 105 bilirubin, LFTs and lipase are normal. Point of care urine shows ketones no nitrates leuks or bilirubin. Right upper quadrant ultrasound is negative CT abdomen pelvis shows steatosis of the liver, no radiopaque gallstones or wall thickening no other major changes some simple cyst of the kidney. Adenopathy has decreased in periaortic and aortocaval soft tissue density present measuring 1.4 cm was 2.6 on prior exam. Discussed with patient we will start with the right upper quadrant ultrasound if no acute changes are found we will obtain CT abdomen pelvis as patient does have a history of lymphoma. He defers anything for pain at this time. Right upper quadrant ultrasound is negative. We will obtain CT abdomen pelvis patient does have a history of lymphoma although has been cleared. Reviewed findings with patient. Would have him follow-up if he is having persistent symptoms for EGD or colonoscopy. Patient's findings symptoms more with food would put him on omeprazole 40 mg daily if he might have an ulcer or some gastritis causing his symptoms. Follow up for EGD. Discharge Plan Departure Patient Disposition: Home Clinical Impression: Abdominal pain Instructions: DI for Abdominal Pain-Adult Activity Restrictions/Additional Instructions: Follow up for recheck you may benefit from EGD or upper endoscopy. Based on your symptoms ulcer or gastritis has possibility symptoms. This will not asleep be seen on imaging. Please call to set up follow up. Your imaging today was overall reassuring your CT showed a decrease in size of your abdominal nodes compared to prior imaging in 2022. I would recommend omeprazole 40 mg daily/prilosec is the brand name. You can use the generic. You can also take Tums if you find it helpful. Dietary changes can also be helpful and avoiding chronic usage of NSAIDs such as ibuprofen or aspirin which can sometimes irritate the lining of the stomach. Please return for new or worsening abdominal back or flank pain, fevers, vomiting, black or bloody stools or other new or concerning changes. Prescriptions: New omeprazole 40 mg capsule,delayed release(DR/EC) 40 mg PO DAILY Qty: 60 0RF No Action mupirocin 2 % ointment 1 applic TOP BID Qty: 30 0RF ascorbic acid (vitamin C) 500 MG tablet 500 mg PO QDAY Qty: 0 [TURMERIC] 500 mg PO QDAY Qty: 0 ibuprofen [Advil] 200 MG tablet 400 mg PO Q6HP PRNQty: 0 lorazepam 0.5 MG tablet 0.5 mg PO Q6HP PRNQty: 40 0RF ondansetron 4 MG tablet,disintegrating 4 mg Sublingual Q6HP PRNQty: 40 2RF prochlorperazine maleate [Compazine] 5 MG tablet 5 mg PO PRN Qty: 0 sulfamethoxazole-trimethoprim 800 MG/160 MG tablet 1 tab PO BID Qty: 0 acyclovir [Zovirax] 200 MG capsule 200 mg PO BID Qty: 0 levofloxacin [Levaquin] 500 MG tablet 500 mg PO QDAY Qty: 0 hydrocodone-acetaminophen 5-325 mg tablet 1 tab PO Q4-6H PRN (Reason: pain) Qty: 10 0RF ondansetron 4 mg tablet,disintegrating 4 mg PO TID-QID PRN (Reason: nausea and vomiting) Qty: 10 0RF silver sulfadiazine [SSD] 1 % cream 1 applic Topical BID Patient Comments: apply to affected area twice a day hydromorphone [Dilaudid] 2 MG tablet 1 - 2 tab PO Q3HP PRN (Reason: pain) Stand Alone Forms: Patient Portal/API/Survey
--- NOTE | 2024-09-05 11:49 | DI.US.S_ITS ---
PROCEDURE: US ABDOMEN LIMITED INDICATIONS: POST PRANDIAL RUQ PAIN; HX LYMPHOMA TECHNIQUE: Real-time scanning was performed of the abdominal and retroperitoneal organs, with image documentation. COMPARISON: [facility], CT, CT ABDOMEN WITH CONTRAST, 10/26/2022, 16:41. FINDINGS: Liver: Liver is normal in size and homogeneous in echotexture. Gallbladder: No gallstones. No wall thickening. No pericholecystic edema. Negative sonographic Mcintosh's sign. Biliary ducts: Intrahepatic bile ducts are non-dilated. Extrahepatic bile duct caliber measures 4 mm. Normal is 6-7 mm or less in diameter, or 10 mm or less post-cholecystectomy. Pancreas: Visualized portions of the pancreas are sonographically normal. Miscellaneous: No free abdominal fluid. IMPRESSION: Normal right upper quadrant ultrasound. No gallbladder pathology. Dictated by: Jamie Ma M.D. on 09/05/2024 at 12:23 Approved by: Jamie Ma M.D. on 09/05/2024 at 12:24
--- NOTE | 2024-09-05 12:29 | DI.CT.S_ITS ---
PROCEDURE: CT ABDOMEN PELVIS W CON INDICATIONS: abd pain w/ food, hx lymphoma, treated. TECHNIQUE: After the administration of intravenous contrast, axial sections acquired from the lung bases to the pubic symphysis. Coronal and sagittal reformats were performed. For radiation dose reduction, the following was used: automated exposure control, adjustment of mA and/or kV according to patient size. COMPARISON: [facility], CT, CT ABDOMEN WITH CONTRAST, 10/26/2022, 16:41. [facility], CT, CT ABDOMEN PELVIS W CON, 09/04/2021, 21:44. FINDINGS: Image quality: Diagnostic. Lower Chest: No significant findings. ABDOMEN: Liver: No solid mass. Steatosis. Gallbladder: No radiopaque gallstones or wall thickening. Biliary ducts: No biliary dilation. Pancreas: No ductal dilation. Spleen: Size is within normal limits. Adrenal Glands: No adrenal nodules. Kidneys and Ureters: No hydronephrosis. No solid mass. No complex renal cystic lesion which requires follow up. Simple cysts. Stomach and Bowel: Normal colonic caliber, without significant wall thickening. Peritoneum: No abnormal intraperitoneal fluid. No free air. Ventral Wall: No significant ventral hernia. Abdominal Nodes: Periaortic and aortocaval soft tissue density is present are measuring 1.4 cm. This is compared to 2.6 cm on prior exam. Vessels: Aorta and inferior vena cava are normal in size. PELVIS: Pelvic Organs: Unremarkable. Bladder: No bladder wall thickening, accounting for underdistention. Pelvic Nodes: No enlarged lymph nodes. Miscellaneous: No inguinal hernias are seen. Bones: No aggressive osseous abnormality. IMPRESSION: No acute intra-abdominal or pelvic process. Decreased adenopathy compared to prior exam. Dictated by: Annie Barrett M.D. on 09/05/2024 at 12:54 Approved by: Annie Barrett M.D. on 09/05/2024 at 13:03
--- NOTE | 2024-09-05 12:53 | PC.NURSE ---
After returning from CT, commercial kitchen service technician notified nurse that pt became nauseas and threw up after IV contrast. RN went to check on pt, pt states he feels better and has no symptoms of allergic reaction. RN offerend pt Arabellafran, pt declining at this time.
[2024-09-05] MEDS: PANTOPRAZOLE 40 MG VIAL IV (13:25)
== END 2024-09-05 13:34 | disposition home or self-care (01) ==
PROVIDERS: Emergency Provider Emergency Medicine
DX: R10.9 Unspecified abdominal pain (principal); Z85.71 Personal history of Hodgkin lymphoma
CPT/HCPCS: 36415; 74177; 76705; 80053; 81003; 83690; 85025; 96374; 99284; J2470; Q9967

== ENCOUNTER 2025-05-04 17:40 | Emergency (ER) | payer SELFPAY ==
[2025-05-04] VITALS (7 sets, daily range): BP systolic 121–138; BP diastolic 77–90; PULSE 74–89; RESP 16; TEMP 36.5; O2SAT 97–100; BMI 24.2
[2025-05-04 18:08] LABS: Appearance Urine UA CLEAR; Bilirubin Urine UA NEGATIVE (NEGATIVE); Color Urine UA YELLOW; Glucose Urine UA NEGATIVE (Negative); Ketones Urine UA NEGATIVE (NEGATIVE); Leukocyte Esterase Urine UA NEGATIVE (NEGATIVE); Nitrite Urine UA NEGATIVE (Negative); Occult Blood Urine UA NEGATIVE (Negative); Protein Urine UA NEGATIVE (Negative); Specific Gravity Urine UA 1.010 (1.000-1.035); Urobilinogen Urine UA 0.2 E.U./dL (0.2); pH Urine UA 6.5 (4.5-8.0)
[2025-05-04 18:12] LABS: Culture Indicated Urine Cult Not Indicated
--- NOTE | 2025-05-04 19:46 | ED_ITS ---
HPI - Male Genitourinary General Chief complaint: Urogenital-Male Stated complaint: Poss UTI, Kidney/abdomen Time Seen by Provider: 05/04/25 17:48 History of Present Illness HPI Narrative: 34-year-old gentleman history of Hodgkin's lymphoma former smoker presents with bilateral suprapubic pain radiating to bladder region along with burning when he urinates but no penile discharge that started today. 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 He denies fever chills body aches sore throat cough nausea vomiting diarrhea or constipation. He did have 3 bowel movements earlier today in his tolerating p.o. intake. He states the pain does radiate around to the side and to the back also. Other than what is stated 14 point review of system is negative. Related Data Home Medications ?Medication ?Instructions ?Recorded ?Confirmed [TURMERIC] 500 mg PO QDAY ##0 03/17/17 10/26/18 ascorbic acid (vitamin C) 500 mg 500 mg PO QDAY ##0 10/26/18 tablet ibuprofen 200 mg tablet (Advil) 400 mg PO Q6HP PRN ##0 08/18/17 10/26/18 acyclovir 200 mg capsule (Zovirax) 200 mg PO BID ##0 0 12/20/17 10/26/18 levofloxacin 500 mg tablet 500 mg PO QDAY ##0 12/20/17 10/26/18 (Levaquin) prochlorperazine maleate 5 mg 5 mg PO PRN ##0 8 10/26/18 tablet (Compazine) sulfamethoxazole 800 1 tab PO BID ##0 12/20/17 mg-trimethoprim 160 mg tablet hydromorphone 2 mg tablet 1 - 2 tab PO Q3HP PRN pain 0 10/17/18 10/26/18 (Dilaudid) silver sulfadiazine 1 % topical 1 applic topical BID 0 10/17/18 10/26/18 cream Previous Rx's ?Medication ?Instructions ?Recorded lorazepam 0.5 mg tablet 0.5 mg PO Q6HP PRN #40 tabs 10/06/17 ondansetron 4 mg disintegrating 4 mg sublingual Q6HP P RN #40 tabs 10/06/17 tablet mupirocin 2 % topical ointment 1 applic topical BID #3 0 grams 10/26/18 hydrocodone 5 mg-acetaminophen 325 1 tab PO Q4-6H PRN pain #10 tabs 09/04/21 mg tablet ondansetron 4 mg disintegrating 4 mg PO TID-QID PRN na usea and 09/04/21 tablet vomiting #10 tabs omeprazole 40 mg capsule,delayed 40 mg PO DAILY #60 ca ps 09/05/24 release Allergies Allergy/AdvReac Type Severity Reaction Status Date / Time vancomycin Allergy Rash Verified 10/26/18 13:09 Iodinated Contrast Media AdvReac Vomiting Verified 09/05/24 12:46 morphine AdvReac Vomiting Verified 10/26/18 13:09 Review of Systems Review of Systems ROS Unobtainable: All systems reviewed & are unremarkable except as noted in HPI and below Patient History Medical History History of shingles Perirectal abscess History of nephrolithiasis Hodgkin's lymphoma Surgical History History of stem cell transplant Family History Other Family history non-contributory alcohol intake frequency: 3 or more drinks per day Exam Narrative Exam Narrative: GENERAL: [34] year old patient appears stated age. Well-developed patient, in mild distress. HEAD: Atraumatic. Normocephalic. EYES: Pupils equal round and reactive. Extraocular motions intact. No scleral icterus. No injection or drainage. ENT: Nose without bleeding, purulent drainage. Throat without erythema, tonsillar hypertrophy or exudate. Airway patent. NECK: Trachea midline. Non tender CARDIOVASCULAR: Regular rate and rhythm without murmurs, gallops, or rubs. RESPIRATORY: Clear to auscultation. Breath sounds equal bilaterally. No wheezes, rales, or rhonchi. GASTROINTESTINAL: Abdomen soft, non-tender, nondistended. EXTREMITIES: No edema or joint tenderness. BACK: Nontender without deformity or crepitance. No flank tenderness. NEURO: AOx3. SKIN: No rash or erythema of visible areas Initial Vital Signs Initial Vital Signs: Vital Signs Temperature 97.7 F 05/04/25 17:51 Pulse Rate 86 05/04/25 17:51 Respiratory Rate 16 05/04/25 17:51 Blood Pressure 138/86 05/04/25 17:51 Pulse Oximetry 97 05/04/25 17:51 Oxygen Delivery Method Room Air 05/04/25 17:51 Course Orders Ordered: ED Orders 05/04/25 18:00 Chlamydia Gonorrhea PCR -URINE Stat Urinalysis and Microscopic Stat 05/04/25 20:03 Complete Blood Count AUTO DIFF Stat Comprehensive Metabolic Panel Stat Lipase Stat 05/04/25 20:49 CT abdomen pelvis wo con Stat Ondansetron HCl (Ondansetron 4 Mg/2 Ml Inj) 4 mg IV NOW PRN PRN Reason: Nausea And Vomiting Ondansetron HCl (Ondansetron 4 Mg Odt) 4 mg PO NOW PRN PRN Reason: Nausea And Vomiting Discontinued Medications Lactated Ringer's (Lactated Ringers) 1,000 mls @ 1,000 mls/hr IV BOLUS ONE Stop: 05/04/25 20:50 Last Admin: 05/04/25 20:13 Dose: 1,000 mls/hr Documented By: FLORIDALMA Ketorolac Tromethamine (Ketorolac 30 Mg/Ml Vial) 15 mg IV NOW ONE Stop: 05/04/25 19:52 Last Admin: 05/04/25 20:13 Dose: 15 mg Documented By: FLORIDALMA Vital Signs Vital signs: Vital Signs - 8 hr 05/04/25 17:51 05/04/25 19:36 05/04/25 19:36 Temperature 97.7 F Pulse Rate 86 74 Respiratory Rate 16 Blood Pressure 138/86 121/77 Pulse Oximetry 97 98 Oxygen Delivery Method Room Air 05/04/25 20:00 05/04/25 20:06 05/04/25 20:06 Temperature Pulse Rate 83 81 Respiratory Rate Blood Pressure 131/86 Pulse Oximetry 99 98 Oxygen Delivery Method MDM - Male Genitourinary Lab Data 05/04/25 20:03 05/04/25 20:03 Labs: Lab Results 05/04/25 05/04/25 Range/Units 18:00 20:03 WBC 6.8 (4.5-11.0) X10^3/uL RBC 4.01 L (4.5-5.9) X10^6/uL Hgb 13.7 (13.5-17.5) g/dL Hct 39.4 L (41-53) % MCV 98.2 (80-100) fL MCH 34.2 H (26-34) PG MCHC 34.8 (30-36) % RDW 13.3 (11.6-14.8) % Plt Count 244 (150-400) X10^3/uL Neut % (Auto) 64.4 (50-75) % Lymph % (Auto) 22.1 L (25-40) % [place] % (Auto) 10.7 (3-14) % Eos % (Auto) 1.9 L (2-4) % Baso % (Auto) 0.9 (0-2) % Neut # (Auto) 4300 (8184-9151) /uL Lymph # (Auto) 1500 (1503-3223) /uL Stanton # (Auto) 700 (0-900) /uL Eos # (Auto) 100 (0-450) /uL Baso # (Auto) 100 (0-100) /uL Sodium 140 (137-145) mmol/L Potassium 3.9 (3.4-5.1) mmol/L Chloride 102 (98-107) mmol/L Carbon Dioxide 26 (22-32) mmol/L BUN 18 (9-20) mg/dL Creatinine 0.86 (0.66-1.25) mg/dL Estimated GFR > 60 (>60) mL/min BUN/Creatinine Ratio 20.9 (6-22) Glucose 82 (70-99) mg/dL Calcium 9.4 (8.4-10.2) mg/dL Total Bilirubin 0.4 (0.2-1.3) mg/dL AST 47 (17-59) IU/L ALT 27 (<50) IU/L Alkaline Phosphatase 52 (38-126) U/L Total Protein 7.9 (6.3-8.2) g/dL Albumin 4.8 (3.5-5.0) g/dL Globulin 3.1 (1.7-4.1) g/dL Albumin/Globulin Ratio 1.5 (1.0-2.8) Lipase 98 (23-300) U/L Urine Color Yellow Urine Appearance Clear Urine pH 6.5 (4.5-8.0) Ur Specific [place] 1.010 (1.000-1.035) Urine Protein Negative (Negative) Urine Glucose (UA) Negative (Negative) g/dL Urine Ketones Negative (NEGATIVE) Urine Occult Blood Negative (Negative) Urine Nitrate Negative (Negative) Urine Bilirubin Negative (NEGATIVE) Urine Urobilinogen 0.2 (0.2) E.U./dL Ur Leukocyte Esterase Negative (NEGATIVE) Urine RBC None seen (0-5/HPF) Urine WBC None seen (0-5/HPF) Ur Squamous Epith Cells 0-1 /hpf (0-5/HPF) Urine Bacteria None seen (None) Ur Culture Indicated? Cult not indicated Vol Urine Centrifuged 10ml (spun) Urine Dip Bedside Urine Glucose Negative Bedside Urine Bilirubin - Negative Bedside Urine Ketone - Negative Urine Specific [place] 1.015 Bedside Urine Occult Blood - Negative Bedside Urine pH 6.0 Bedside Urine Protein - Negative Bedside Urine Urobilinogen - Negative Bedside Urine Nitrite - Negative Bedside Urine Leukocytes - Negative Esterase Imaging Data CT scan - abdomen/pelvis: Radiologist's Impression: [address] [address] [address] Scan Report Signed Patient: Michael Kay MR#: [id number] : 1990 Acct:[id number] Age/Sex: 34 / M Date of Service: 05/04/25 Loc: ED Accession Number: [id number] Procedure: CT abdomen pelvis wo con Ordering Provider: Jose Cheung D.O. PROCEDURE: CT ABDOMEN PELVIS WO CON INDICATIONS: abd pain TECHNIQUE: CT of the abdomen and pelvis was obtained without intravenous contrast. Coronal and sagittal reformats were performed. For radiation dose reduction, the following was used: automated exposure control, adjustment of mA and/or kV according to patient size. COMPARISON: [facility], CT, CT ABDOMEN PELVIS W CON, 09/05/2024, 12:43. FINDINGS: Image quality: Diagnostic. Lower Chest: No significant findings. ABDOMEN: Liver: No contour-deforming mass. Gallbladder: No radiopaque gallstones or wall thickening. Biliary ducts: No biliary dilation. Pancreas: No ductal dilation. Spleen: Size is within normal limits. Adrenal Glands: No adrenal nodules. Kidneys and Ureters: No hydronephrosis. No contour-deforming mass. Stomach and Bowel: Normal colonic caliber, without significant wall thickening. Peritoneum: No abnormal intraperitoneal fluid. No free air. Ventral Wall: Small fat containing ventral hernia. Abdominal Nodes: No retroperitoneal or mesenteric adenopathy by size criteria. Vessels: Aorta and inferior vena cava are normal in size. PELVIS: Pelvic Organs: Unremarkable. Bladder: Unremarkable. Pelvic Nodes: No enlarged lymph nodes. Miscellaneous: No inguinal hernias are seen. Bones: No aggressive osseous abnormality. IMPRESSION: No acute intra-abdominal or pelvic process. MDM Narrative Medical decision making narrative: All lab work, vital signs, nurse triage note, medication list, previous ER visits, and all imaging studies reviewed. CT abdomen and pelvis showed no acute intra-abdominal or pelvic process decreased adenopathy compared to prior exam. Differential diagnosis includes pancreatitis diverticulitis appendicitis kidney stone kidney infection lymphoma constipation UTI. Discharge Plan Departure Patient Disposition: Home Clinical Impression: Abdominal pain Qualifiers: Abdominal location: lower abdomen, unspecified Qualified Code(s): R10.30 - Lower abdominal pain, unspecified Instructions: DI for Abdominal Pain-Adult Activity Restrictions/Additional Instructions: Return with new or worsening symptoms. Keep hydrated. Clear liquid diet advance as tolerated. Follow up PCP 1-2 weeks if no improvement in symptoms. Prescriptions: No Action mupirocin 2 % ointment 1 applic TOP BID Qty: 30 0RF ascorbic acid (vitamin C) 500 MG tablet 500 mg PO QDAY Qty: 0 [TURMERIC] 500 mg PO QDAY Qty: 0 ibuprofen [Advil] 200 MG tablet 400 mg PO Q6HP PRNQty: 0 lorazepam 0.5 MG tablet 0.5 mg PO Q6HP PRNQty: 40 0RF ondansetron 4 MG tablet,disintegrating 4 mg Sublingual Q6HP PRNQty: 40 2RF prochlorperazine maleate [Compazine] 5 MG tablet 5 mg PO PRN Qty: 0 sulfamethoxazole-trimethoprim 800 MG/160 MG tablet 1 tab PO BID Qty: 0 acyclovir [Zovirax] 200 MG capsule 200 mg PO BID Qty: 0 levofloxacin [Levaquin] 500 MG tablet 500 mg PO QDAY Qty: 0 hydrocodone-acetaminophen 5-325 mg tablet 1 tab PO Q4-6H PRN (Reason: pain) Qty: 10 0RF ondansetron 4 mg tablet,disintegrating 4 mg PO TID-QID PRN (Reason: nausea and vomiting) Qty: 10 0RF silver sulfadiazine [SSD] 1 % cream 1 applic Topical BID Patient Comments: apply to affected area twice a day hydromorphone [Dilaudid] 2 MG tablet 1 - 2 tab PO Q3HP PRN (Reason: pain) omeprazole 40 mg capsule,delayed release(DR/EC) 40 mg PO DAILY Qty: 60 0RF Stand Alone Forms: Patient Portal/API
[2025-05-04 20:13] LABS: Add Manual Diff / Slide Review NO; Hematocrit 39.4 % (41-53); Hemoglobin 13.7 g/dL (13.5-17.5); Lymphocytes Absolute Auto 1500 /uL (1100-4500); Mean Corpuscular HGB Conc 34.8 % (30-36); Mean Corpuscular Hemoglobin 34.2 PG (26-34); Mean Corpuscular Volume 98.2 fL (80-100); Platelet Count 244 X10^3/uL (150-400)
[2025-05-04] MEDS: KETOROLAC 30 MG/ML VIAL 15 MG IV (20:13)
[2025-05-04] MEDS: LACTATED RINGERS 1,000 ML 1000 ML IV (20:13)
[2025-05-04 20:28] LABS: Alanine Aminotransferase 27 IU/L (<50); Albumin 4.8 g/dL (3.5-5.0); Albumin Globulin Ratio 1.5 (1.0-2.8); Alkaline Phosphatase 52 U/L (38-126); Blood Urea Nitrogen 18 mg/dL (9-20); Calcium 9.4 mg/dL (8.4-10.2); Carbon Dioxide 26 mmol/L (22-32); Chloride 102 mmol/L (98-107); Estimated Glomerular Filt Rate > 60 mL/min (>60); Globulin 3.1 g/dL (1.7-4.1); Glucose 82 mg/dL (70-99); HEMOLYSIS 20 (0-50); Lipase 98 U/L (23-300); Potassium 3.9 mmol/L (3.4-5.1); Sodium 140 mmol/L (137-145); Total Protein 7.9 g/dL (6.3-8.2)
--- NOTE | 2025-05-04 20:49 | DI.CT.S_ITS ---
PROCEDURE: CT ABDOMEN PELVIS WO CON INDICATIONS: abd pain TECHNIQUE: CT of the abdomen and pelvis was obtained without intravenous contrast. Coronal and sagittal reformats were performed. For radiation dose reduction, the following was used: automated exposure control, adjustment of mA and/or kV according to patient size. COMPARISON: [facility], CT, CT ABDOMEN PELVIS W CON, 09/05/2024, 12:43. FINDINGS: Image quality: Diagnostic. Lower Chest: No significant findings. ABDOMEN: Liver: No contour-deforming mass. Gallbladder: No radiopaque gallstones or wall thickening. Biliary ducts: No biliary dilation. Pancreas: No ductal dilation. Spleen: Size is within normal limits. Adrenal Glands: No adrenal nodules. Kidneys and Ureters: No hydronephrosis. No contour-deforming mass. Stomach and Bowel: Normal colonic caliber, without significant wall thickening. Peritoneum: No abnormal intraperitoneal fluid. No free air. Ventral Wall: Small fat containing ventral hernia. Abdominal Nodes: No retroperitoneal or mesenteric adenopathy by size criteria. Vessels: Aorta and inferior vena cava are normal in size. PELVIS: Pelvic Organs: Unremarkable. Bladder: Unremarkable. Pelvic Nodes: No enlarged lymph nodes. Miscellaneous: No inguinal hernias are seen. Bones: No aggressive osseous abnormality. IMPRESSION: No acute intra-abdominal or pelvic process. Dictated by: Annie Barrett M.D. on 05/04/2025 at 21:16 Approved by: Annie Barrett M.D. on 05/04/2025 at 21:17
[2025-05-04 22:09] LABS: Urine N gonorrhoeae NOT DETECTED
[2025-05-04 22:15] LABS: Urine Chlamydia NOT DETECTED
== END 2025-05-04 21:57 | disposition home or self-care (01) ==
PROVIDERS: Emergency Medicine; Emergency Provider Family Medicine
DX: R10.30 Lower abdominal pain, unspecified (principal)
CPT/HCPCS: 36415; 74176; 80053; 81001; 81003; 83690; 85025; 87491; 87591; 96361; 96374; 99284; J1885